=== PATIENT | male | born 1995 | race Caucasian/White ===

== ENCOUNTER 2016-11-11 09:40 | Emergency (ER) | payer BC ==
[2016-11-11 09:58] VITALS: TEMP 97.9
--- NOTE | 2016-11-11 11:04 | EDPHY ---
H & P Stated Complaint: sore throat, swollen right side neck (lymph node?) fevers Time Seen by Provider: 11/11/16 10:02 HPI/ROS: Chief complaint: Swollen lymph nodes History of present illness: This is a 21-year-old male who presents to the emergency department for swollen lymph nodes. Patient reports he noted the onset of symptoms approximately 2 weeks ago. He primarily notes swollen lymph nodes on the right side of his neck. He states they are tender. He states initially for the 1st 2 weeks it was just the swollen tender lymph nodes he was suffering from. Last night he developed a slight sore throat. He denies specific precipitating factors. He denies alleviating factors. He denies other associated signs or symptoms including no fevers, no runny nose or nasal congestion, no ear pain, no chest congestion or cough. No other noted swollen lymph nodes. He denies trouble swallowing, talking or breathing. Review of systems: A 10 point review of systems was obtained and other than described above was negative - Personal History Current Tetanus/Diphtheria Vaccine: Unsure Current Tetanus Diphtheria and Acellular Pertussis (TDAP): Unsure - Medical/Surgical History Hx Asthma: No Hx Chronic Respiratory Disease: No Hx Diabetes: No Hx Cardiac Disease: No Hx Renal Disease: No Hx Cirrhosis: No Hx Alcoholism: No Hx HIV/AIDS: No Hx Splenectomy or Spleen Trauma: No Other PMH: denies. lumar ruptured discs - Social History Smoking Status: Current some day smoker - Physical Exam Exam: General Appearance: Alert, nontoxic. Eyes: Pupils equal and round no injection. ENT: Tympanic membranes, external auditory canals, external ears and surrounding soft tissue including over the mastoids are unremarkable. Nasopharynx is not injected. There is no rhinorrhea. Oropharynx is mildly injected. There is no edema. There is no exudate. There is no asymmetry. The uvula is midline. No elevation of the tongue. There is no hoarseness, no drooling, no trismus, no stridor. Respiratory: Chest is nontender, lungs are clear to auscultation. Cardiac: regular rate and rhythm. Musculoskeletal: Neck is supple.. Extremities have full range of motion and are nontender. Lymph: Right neck lymphadenopathy noted around the angle of the jaw Skin: No rashes or lesions. No erythema or edema beyond noted lymphadenopathy of the face or neck Neurologic: Alert and oriented x4. No meningismus. Ambulating without difficulty. Constitutional: Initial Vital Signs Temperature (C) 36.6 C 11/11/16 09:55 Heart Rate 78 11/11/16 09:55 Respiratory Rate 16 11/11/16 09:55 Blood Pressure 135/75 H 11/11/16 09:55 O2 Sat (%) 98 11/11/16 09:55 O2 Delivery Mode Room Air Allergies/Adverse Reactions: No Known Allergies Allergy (Unverified 11/11/16 09:54) Home Medications: Medication Instructions Recorded NK [No Known Home Meds] 11/11/16 Medical Decision Making - Diagnostics Imaging: Ultrasound of the neck confirms lymphadenopathy of unclear etiology, see report for complete details ED Course/Re-evaluation: Patient seen under the supervision of my primary supervising physician Dr. Kristie Gregory. Patient presents to the emergency department for concern for persistent lymph node. He does appear to have lymphadenopathy on physical exam, ultrasound confirms lymphadenopathy. I do not appreciate evidence of emergent complications such as airway compromise at this time. Patient is nontoxic and his vital signs are stable. I believe he is appropriate for outpatient management. He is discharged home. However, I have had an extensive discussion on the importance of close follow-up for this to ascertain its ideology. He is referred to ENT for continued evaluation and care. He is given strict return precautions. He has voiced understanding and agreement with plan. Differential Diagnosis: Included but not limited to lymphadenopathy of multiple etiologies, abscess, salivary gland disorder - Data Points Laboratory Results: 11/11/16 11/11/16 Unknown 10:19 Group A Strep Screen NEGATIVE (NEGATIVE) Group A Strep DNA Pending Departure - Departure Disposition: Home, Routine, Self-Care Clinical Impression: Lymphadenopathy Condition: Good Instructions: Lymphadenopathy (ED) Additional Instructions: Please follow-up with an Ears Nose and Throat doctor this week for continued evaluation and care If symptoms worsen or new symptoms develop return to the emergency department for recheck Referrals: PT,UNSURE [Other] - As per Instructions Jeronimo Packer MD [Medical Doctor] - As per Instructions
[2016-11-11 11:19] VITALS: BP 147/82; PULSE 63; RESP 18; O2SAT 96
== END 2016-11-11 11:19 | disposition home or self-care (01) ==
DX: R59.0 Localized enlarged lymph nodes (principal); F17.200 Nicotine dependence, unspecified, uncomplicated